=== PATIENT | male | born 1970 | race Caucasian/White ===

== ENCOUNTER 2016-11-12 21:30 | Emergency (ER) | payer OTHER ==
--- NOTE | 2016-11-13 19:59 | ER ---
ADMIT: 11/12/2016 RM/LOC: ER [facility] MR#: [id number] [address] [id number] [place] [address] [place] [address] Emergency Room Report SEX: M AGE: 45 : 1970 DATE: 11/12/2016 HISTORY OF PRESENT ILLNESS: The patient is a 45-year-old male with a past medical history of chronic neck pain and headaches. For the last 5 weeks, the headaches increased and he had it intermittently everyday and it was moderate to severe in severity, and also it is in the posterior of the head and sometimes it goes to the frontal, but the patient for the last 5 weeks had similar episodes of the headaches daily. The patient has been followed up in [place], and had CT scan of the brain and C-spine per patient, which were negative for any abnormalities. The patient is waiting for the MRIs. The patient states he did not take anything for the headache today. The patient is very similar to the previous headaches in the frontal and radiates to the occipital area, and also the patient has right paraspinal neck pain and spasm, which the patient had the same neck pain before for many days and weeks. The patient denies any neck stiffness and also any photophobia, nausea, vomiting, fever, or problem with the balance or new weakness or numbness. PHYSICAL EXAMINATION: GENERAL: The patient is in mild distress. VITAL SIGNS: The patient has stable vitals, afebrile. HEENT/NECK: Neck is soft. Negative jolt test. Pupils 3 mm, reactive to light. Cranial nerve, motor, sensory, and cerebellar tests are all normal. Gait is normal. LUNGS: Clear bilaterally. SPINE: There is no midline tenderness or step-offs in the spine. HEART: Normal heart sounds. ABDOMEN: Soft. The rest of the physical exam is noncontributory. SKIN: The patient has no skin rashes. Pain was controlled. The patient was re-examined. The patient had no focal deficit and has already had negative CT scan of the brain. The patient is stable to be discharged to home to be followed up with the primary doctor and the MRI appointment, with diagnoses of chronic neck pain and acute and chronic cephalgia. Nabil Guy MD/ david JOB #: [id number] CC: Nabil Guy MD, Attending Physician Ankit Myrick MD, Family Physician
== END 2016-11-12 23:05 | disposition home or self-care (01) ==
LOC: ER 21:30
DX: G89.29 Other chronic pain (principal); R51 Headache; M54.2 Cervicalgia; Z90.49 Acquired absence of other specified parts of digestive tract